=== PATIENT | male | born 1955 | race Caucasian/White ===

== ENCOUNTER 2017-08-26 17:15 | Emergency (ER) | payer BC ==
[~2017-08-26] VITALS: Ht 175.3 cm; Wt 93.2 kg
[~2017-08-26 17:15] MED LIST: ALLEGRA60 MG PO; NO HOME MEDICATIONS; ROXICODONE 55 MG/TAB PO; SINGULAIR; SINGULAIR 110 MG/TAB PO; SKELAXIN800 MG PO; ULTRAM 50MG TAB50 MG PO; VISTARIL50 MG PO; ZETIA 10MG TAB10 MG PO
[2017-08-26 17:19] VITALS: BP 127/80; PULSE 99; TEMP 98.4
== END 2017-08-26 17:51 | disposition left against medical advice (07) ==
LOC: COL.ER 17:15
DX: S81.852A Open bite, left lower leg, initial encounter (principal); W54.0XXA Bitten by dog, initial encounter

== ENCOUNTER 2018-08-09 13:21 | Emergency (ER) | payer BC ==
[~2018-08-09] VITALS: Ht 175.3 cm; Wt 97.7 kg
[2018-08-09 13:27] VITALS: TEMP 97
[2018-08-09 14:26] LABS: BASO % 0.6 % (0.0-2.0); EOS # 0.1 (0.0-0.7); EOS % 1.6 % (0-4.0); GRAN # 4.3 (1.4-6.5); GRAN % 66.9 % (42.2-75.2); HEMATOCRIT 42.6 % (42.0-52.0); HEMOGLOBIN 14.6 g/dl (13.5-18.0); LYMPH # 1.1 (1.2-3.4); LYMPH % 17.5 % (20.0-51.0); MEAN CELL VOLUME 92 fl (80.0-100.0); MEAN CORPUSCULAR HEMOGLOBIN 31 pg (27.0-31.0); MEAN CORPUSCULAR HGB CONC 34 g/dl (33.0-37.0); MEAN PLATELET VOLUME 9.2 fl (7.4-10.4); MONO # 0.8 (0.1-0.6); MONO % 13.1 % (1.7-9.3); PLATELET COUNT 298 K/mm3 (130-400); RED BLOOD COUNT 4.65 M/mm3 (4.20-5.60)
[2018-08-09 14:55] LABS: ERYTHROCYTE SEDIMENTATION RATE 28 mm/hr (0-30)
[2018-08-09] MEDS ORDERED: COLCRYS0.6 MG PO (15:11)
[2018-08-09 15:26] VITALS: BP 114/74; PULSE 85
== END 2018-08-09 15:27 | disposition home or self-care (01) ==
LOC: COL.ER 13:21
PROVIDERS: Nurse Practitioner Primary Care
DX: M10.9 Gout, unspecified (principal); E78.5 Hyperlipidemia, unspecified